=== PATIENT | female | born 1950 | race Caucasian/White ===

== ENCOUNTER 2023-11-12 18:43 | Emergency (ER) | payer MEDICARE ==
[2023-11-12] MEDS: Diphtheria,Pertussis(Acell),Tetanus Vaccine 0.5 ML Syringe IM ONE (19:26)
[2023-11-12] MEDS: Lidocaine 1% 10 ML MDV INJECT ONE (19:26)
[2023-11-12] MEDS: Bacitracin Oint 1 GM U/D Packet TOP ONE (19:26)
[2023-11-12] MEDS: Ibuprofen 400 MG Tab PO ONE (20:42)
== END 2023-11-12 21:03 | disposition home or self-care (01) ==
LOC: JP.ED 18:43
DX: S01.511A Laceration without foreign body of lip, initial encounter (principal); S01.81XA Laceration without foreign body of other part of head, initial encounter; I10 Essential (primary) hypertension; Z23 Encounter for immunization; Z79.899 Other long term (current) drug therapy; W22.8XXA Striking against or struck by other objects, initial encounter; Y93.89 Activity, other specified
CPT/HCPCS: 12011; 90471; 90715; 99282-25; A9270-GY